=== PATIENT | female | born 1995 | race Caucasian/White ===

== ENCOUNTER → 2017-09-24 | Outpatient (CLI) | payer OTHER ==
[2017-09-25 13:55] LABS: CHLAMYDIA TRACH RNA*** NOT DETECTED (NOT DETECTED); GC (NEIS GONORRHOEAE)RNA** NOT DETECTED (NOT DETECTED)
== END | disposition home or self-care (01) ==
LOC: C.LABSPEC 11:00
PROVIDERS: ATTEND Physician Assistant
DX: Z12.4 Encounter for screening for malignant neoplasm of cervix (principal)

== ENCOUNTER → 2017-10-23 | Outpatient (CLI) | payer OTHER | END | disposition home or self-care (01) | LOC: C.PATHSPEC 13:15 | PROVIDERS: ATTEND Obstetrics & Gynecology | DX: D28.0 Benign neoplasm of vulva (principal) ==

== ENCOUNTER 2023-03-08 19:38 | Inpatient (IN) ==
[2023-03-08] MEDS ORDERED: PROMETHAZINE HCL INJ 25 MG/ML 1 ML VIAL IM STA (22:15)
[2023-03-08] MEDS ORDERED: MoRPHine SULFATE 10 MG/ML CARP/VIAL IM STA (22:15)
[2023-03-08] MEDS ORDERED: MoRPHine SULFATE 4 MG/ML 1 ML CARP\\VIAL IM STA (22:23)
--- NOTE | 2023-03-08 22:25 | History & Physical Report ---
Date of Service March 08, 2023 Assessment & Plan (1) Irregular uterine contractions: (2) Labor, prolonged latent phase: Plan: Patient is a 27-year-old G1, P0 at 40 weeks and 3 days of gestation with irregular contractions, prolonged latent phase, Vital signs stable afebrile, heart rate reassuring, GBS negative, Discussed expectant management versus Pitocin augmentation versus pain management she declines Pitocin and she desires morphine for pain for now and th en decide after, All questions were answered. History of Present Illness Chief Complaint: Contractions Primary Care Provider: Garth Franco MD Patient is a 27-year-old G1, P0 at 40 weeks and 3 days of gestation who has been feeling contractions for last 3 days. She was here on March 06 when her cervix was 1 cm dilated and she was having irregular contractions. I offered her augmentation with Pitocin but she declined and she wanted to go into labor by herself. She was in office yesterday and they have not checked her cervix since she did not feel any change in terms of contraction pattern. She started to have more regular contractions since this morning they have been around every 5 to 6 minutes and then became more regular this evening every 2 to 4 minutes. She came about 2 hours ago and her cervix was 3 cm dilated, 80% effaced and head is -3 station. She is still declines Pitocin or any type of augmentation and she wants to to walk around and going to labor by herself. She has been ambulating for the last 2 hours and her cervix is about the same with minimal change 3.5 cm. She thinks that her pain is manageable not getting any worse or better. We discussed either expectant management versus admission and augmentation with Pitocin versus trial of morphine to give herself a little bit rest and then check her in 2 to 3 hours. After long discussion she decided to have morphine and then take a nap, relax and then see what happens when she wakes up. She still does not want any type of augmentation or induction. Her induction was scheduled to March 15 and she did not want it moved to earlier date in the office. She denies leakage of fluid or vaginal bleeding. She reports good movements. Her has been uncomplicated, she denies any medical problems and she is GBS negative Allergies Allergy/AdvReac Type Severity Reaction Status Date / Time No Known Allergies Allergy Verified 06/15/21 07:52 Home Medications Medication Instructions Recorded Confirmed Type docosahexaenoic acid 200 mg capsule mg PO DAILY 03/06/23 History iron,carbonyl 65 mg-vitamin C 125 1 tab PO DAILY 03/06/23 03/06/23 History mg tablet,delayed release (Vitron-C) vit no.133-ferrous 1 tab PO DAILY 03/06/23 03/06/23 History fumarate 28 mg-folic acid 800 mcg tablet () Patient History Medical History (Updated 03/08/23 @ 22:25 by Luis Burden MD) No known problems Surgical History Status post wisdom tooth extraction Family History Other Colorectal cancer Heart disease Hypertension Denies family history of Ovarian cancer Breast cancer Social History Smoking Status: Never smoker Second Hand Exposure: No; Do You Dip or Chew Tobacco: No; Tobacco Cessation Education Requested by Patient: No Hx Alcohol Use: No Hx Substance Use: No Preferred Language: Puerto [place]ican Communication Ability: Effective Braille Coder Required: No Beliefs That Will Affect Care: None marital status: Current Living Situation: Spouse and Family Current Living Situation Comment: and family current occupational status: employed and student current occupation: casting technician at [employer] Other Information That Helps Us Care for You: No Feels Safe at Home: Yes Safety Concerns: Feels Safe At This Time Diet Comment: regular Dental Care, Regularly: Yes Physical Activity Frequency: Daily Physical Activity Frequency Comment: works outside, Ipsat Therapies Sunscreen Use: Yes Assistive Devices: None Review of Systems as per Subjective / HPI Physical Exam Constitutional: WD/WN, vitals as above well developed, well nourished and + acute distress (She is in mild distress with contractions and comfortable in between) Genitourinary: normal external appearance OB Exam Abdomen: + vertex Manual OB Exam: + cervical dilation 3 cm, + cervical effacement 80% and + station high OB Exam Monitor Tracing: + external uterine monitor used and + category I Results & Data Vital Signs (Past 12 Hours) Vital Signs Temp Pulse Resp BP 03/08/23 20:13 36.7 C 18 03/08/23 19:56 95 H 131/83 Code Status & VTE Plan VTE Prophylaxis Plan VTE Prophylaxis will be ordered: No
--- NOTE | 2023-03-09 01:20 | Obstetrical Progress Note ---
Date of Service March 09, 2023 Subjective Patient slept for about 2 hours without pain She woke up to use the BR and felt one contraction VE; unchanged, 3-4 cm/ 70%/-2, posterior FHR categ I Unable to trace contractions due to her sleeping position Discussed the findings and recommended admission and augmentation She still declines that and wants to sleep until morning and then walk around to see she will go into labor by herself and then decide after Continue to monitor Results & Data Vital Signs (Past 12 Hours) Vital Signs Temp Pulse Resp BP 03/08/23 20:13 36.7 C 18 03/08/23 23:20 84 119/66 03/08/23 22:50 86 98/61 L 03/08/23 19:56 95 H 131/83
[2023-03-09] MEDS: LACTATED RINGER'S 1,000 ML IV PRN ×2 (03:05→05:06)
[2023-03-09] MEDS ORDERED: OXYTOCIN 30 UNITS/500 ML BAG IV PRN ×2 (03:21→10:26)
[2023-03-09] MEDS ORDERED: LIDOCAINE 1% LOCAL 20 ML VIAL INFIL PRN (03:21)
--- NOTE | 2023-03-09 03:23 | Obstetrical Progress Note ---
Date of Service March 09, 2023 Subjective Patient became much more painful and desires epidural. VE; 4/ 80%/-1, central, much lower than before FHR categ I Ctxs q 2-3 min Plan to admit, labs, IVF bolus and then epidural for pain Results & Data Vital Signs (Past 12 Hours) Vital Signs Temp Pulse Resp BP 03/08/23 20:13 36.7 C 18 03/08/23 23:20 84 119/66 03/08/23 22:50 86 98/61 L 03/08/23 19:56 95 H 131/83
[2023-03-09] MEDS ORDERED: BUTORPHANOL TARTRATE 1 MG/ML VIAL IV ONE (03:45)
[2023-03-09] MEDS ORDERED: BUTORPHANOL TARTRATE 1 MG/ML VIAL ONE (03:50)
[2023-03-09 04:19] LABS: Hematocrit (blood only) 36.5 % (37.0-47.0); Hemoglobin 12.7 g/dl (12.0-16.0); Mean Corpuscular Hemoglobin 31.3 pg (25.0-34.0); Mean Corpuscular Hgb Conc 34.8 g/dL (32.0-36.0); Mean Corpuscular Volume 89.9 fL (80.0-100.0); Mean Platelet Volume 9.8 fL (9.4-12.4); Platelet Count 180 K/uL (130-400); RDW Coefficient of Variation 14.1 % (11.5-14.5); RDW Standard Deviation 46.5 fL (36.4-46.3); Red Blood Count 4.06 M/uL (4.20-5.40); White Blood Count 16.98 K/ul (4.8-10.8)
[2023-03-09] MEDS ORDERED: SODIUM CHLORIDE 0.9% PF INJ 10 ML VIAL ONE (04:25)
[2023-03-09] MEDS ORDERED: LIDOCAINE 2%/EPINEPHRINE 1:200,000 20 ML PF ONE (04:25)
[2023-03-09] MEDS ORDERED: BUPIVACAINE 0.25% PF 30 ML VIAL ONE (04:25)
[2023-03-09] MEDS ORDERED: fentaNYL citrate PF 100 MCG/2 ML VIAL ONE (04:25)
[2023-03-09] MEDS ORDERED: fentaNYL 2MCG/ML ROPIVACAINE 1.25MG/ML 100 ML BAG EPI ONE (04:25)
[2023-03-09] MEDS ORDERED: ePHEDrine sulfate 50 MG/ML AMP ONE (04:26)
[2023-03-09 04:34] LABS: Albumin Globulin Ratio 1.3 (0.9-2); Albumin Level 3.6 gm/dl (3.4-5.0); BUN Creatinine Ratio 13.4 (10-20); Bilirubin,Total 0.5 mg/dl (0.2-1.0); Calcium 8.5 mg/dl (8.6-10.3); Creatinine Clr Calc Pharmacy 143.7 ml/min; Est GFR (African American) 141.6 ml/min; Est GFR (Non-African American) 122.2 ml/min; Globulin 2.7 gm/dl (2.5-4.0); Potassium 3.4 mmol/L (3.5-5.1); Total Protein 6.3 gm/dl (6.0-8.3)
--- NOTE | 2023-03-09 04:37 | Anesthesiology Consultation ---
Date of Service March 09, 2023 Assessment & Plan Chart Review Chart Review: Acceptable Risk for Labor Epidural Consults Requested none ASA ASA2 Proposed Anesthesia Anesthesia Type: Labor Epidural Risk / Benefits Reviewed With: PT / POA / Parent / Guardian, Accepts Plan and Informed Consent Obtained History Height/Weight Height: 5 ft 4 in Weight: 95.254 kg Allergies Allergy/AdvReac Type Severity Reaction Status Date / Time No Known Allergies Allergy Verified 06/15/21 07:52 Medications Home Medications Medication Instructions Recorded Confirmed Last Taken docosahexaenoic acid 200 mg capsule mg PO DAILY 03/06/23 03/05/23 20:00 iron,carbonyl 65 mg-vitamin C 125 1 tab PO DAILY 03/06/23 03/06/23 03/05/23 11:00 mg tablet,delayed release (Vitron-C) vit no.133-ferrous 1 tab PO DAILY 03/06/23 03/06/23 03/05/23 20:00 fumarate 28 mg-folic acid 800 mcg tablet () Active Medications Generic Name Dose Route Start Last Admin Trade Name Albertq PRN Reason Stop Dose Admin Lactated Ringer's 1,000 mls @ 150 mls/hr 03/09/23 03:21 03/09/23 05:06 Lr IV 03/11/23 03:20 150 mls/hr .[id number] PRN Infusion L&D Protocol Protocol NPO Date Last Intake of Fluids: 03/09/23 Time Last Intake of Fluids: 04:00 Date Last Intake of Solids: 03/08/23 Time Last Intake of Solids: 19:00 Past Medical History Medical History No known problems Exercise / Class Metabolic Activity II 4-5 Yardwork/Stairs/Walk up hill Past Family History Family History Other Colorectal cancer Heart disease Hypertension Denies family history of Ovarian cancer Breast cancer Past Surgical History Surgical History Status post wisdom tooth extraction Past Anesthesia History No Hx of Anesthesia Complications and No Family Hx of Anesthesia Complications History of PONV No Hx of PONV and No Hx of Motion Sickness Social History Smoking Status: Never smoker Do You Dip or Chew Tobacco: No Hx Alcohol Use: No Hx Substance Use: No substance use type: does not use Physical Exam Vital Signs Last Vital Signs Temp 36.7 C 03/09/23 04:00 Pulse 93 H 03/09/23 05:17 Resp 18 03/09/23 04:00 BP 94/55 L 03/09/23 05:05 Pulse Ox 98 03/09/23 05:17 ENMT Mouth: no TMJ abnormality Thyromental Distance: > or= 3.5 Finger Breadths Mallampati Class: II Neck normal visual inspection and trachea midline; neck extension not limited Respiratory normal respiratory effort Auscultation: lungs clear to auscultation bilaterally Cardiovascular Rate/Rhythm: regular rate and regular rhythm Heart Sounds: no murmur Musculoskeletal Spine: normal cervical ROM Extremities: full ROM of extremities Neurologic moves all extremities Psychiatric Orientation: alert and oriented x 3 Testing Laboratory Results 03/09/23 03:48 03/09/23 03:48
[2023-03-09] MEDS ORDERED: fentaNYL 2MCG/ML ROPIVACAINE 1.25MG/ML 100 ML BAG EPI PRN (05:17)
[2023-03-09] MEDS ORDERED: LIDOCAINE 2% MPF LOCAL 5 ML VIAL EPI PRN (05:17)
[2023-03-09] MEDS ORDERED: ONDANSETRON INJ 2 MG/ML 2 ML VIAL IV PRN (05:17)
[2023-03-09] MEDS ORDERED: ePHEDrine sulfate 50 MG/ML AMP IV PRN (05:17)
[2023-03-09] MEDS ORDERED: fentaNYL citrate PF 100 MCG/2 ML VIAL EPI PRN (05:17)
[2023-03-09] MEDS ORDERED: BUPIVACAINE 0.25% PF 30 ML VIAL EPI PRN (05:17)
[2023-03-09] MEDS ORDERED: LIDOCAINE 2%/EPINEPHRINE 1:200,000 20 ML PF EPI STA (05:17)
[2023-03-09] MEDS ORDERED: ROPIVACAINE 0.5% PF 5 MG/ML 20 ML VIAL EPI PRN (05:17)
[2023-03-09] MEDS ORDERED: SODIUM CHLORIDE 0.9% PF INJ 10 ML VIAL EPI STA (05:17)
[2023-03-09] MEDS ORDERED: METOCLOPRAMIDE HCL 20 MG in SODIUM CHLORIDE 0.9% 50 ML IV PRN (05:17)
[2023-03-09] MEDS ORDERED: NALOXONE HCL 0.4 MG/1 ML VIAL/CARP IV PRN (05:17)
[2023-03-09] MEDS ORDERED: diphenhydrAMINE 50 MG/ML VIAL IV PRN (05:17)
[2023-03-09] MEDS ORDERED: BUPIVACAINE 0.25% PF 30 ML VIAL EPI STA (05:17)
[2023-03-09] MEDS ORDERED: fentaNYL citrate PF 100 MCG/2 ML VIAL EPI STA (05:17)
[2023-03-09] MEDS ORDERED: SODIUM CHLORIDE 0.9% PF INJ 10 ML VIAL EPI PRN (05:17)
[2023-03-09] MEDS ORDERED: NALBUPHINE HCL INJ 10 MG/ML AMP IV PRN (05:17)
[2023-03-09] MEDS ORDERED: NALOXONE HCL 1 MG in SODIUM CHLORIDE 0.9% 1000ML 1,000 ML IV PRN (05:17)
[2023-03-09] MEDS ORDERED: bisacodyL 10 MG SUPP PR PRN (10:26)
[2023-03-09] MEDS ORDERED: ACETAMINOPHEN 325 MG TAB PO PRN (10:26)
[2023-03-09] MEDS ORDERED: DIPHTHERIA/TETANUS/PERTUSSIS 0.5mL SYR/VIAL (Age 7+yrs) IM ONE (10:26)
[2023-03-09] MEDS ORDERED: BENZOCAINE 20% AER SPR 82.5 GM CAN EXT PRN (10:26)
[2023-03-09] MEDS ORDERED: HYDROCORTISONE ACETATE 25 MG SUPP PR PRN (10:26)
--- NOTE | 2023-03-09 10:30 | Delivery Summary ---
Vaginal Delivery Summary Date of Service March 09, 2023 Vaginal Delivery Summary delivery note Delivery Summary: Patient was placed in the dorsal lithotomy position. She was prepped and draped in the usual sterile fashion. Upon maternal pushing the head was delivered atraumatically followed by the anterior shoulders, posterior shoulders then the remainder of the infants body with FOB hands over hands. Nuchalx1 and body cordx1 reduced. The infant was immediately placed on mother's abdomen, dried and stimulated. Scant moderate mec noted. Delayed cord clamping for 60 seconds was performed. The infants mouth and nose were bulb suctioned by nursing staff. A male infant was delivered at 1005, weight pending with APGARS of 8 at 1 minute and 9 at 5 minutes. The was handed off to the awaiting nursing staff. Cord blood gases were not obtained. The placenta delivered intact with three vessel cord at 1009. Placenta was sent to pathology (meconium stained, unknown ROM, ?prolonged). Thirty units of Pitocin were added to the IV fluid and allowed to run freely. Uterine massage was performed until uterus was deemed firm. Upon inspection of the perineum, cervix was intact. Left vaginal sidewall laceration and right sidewall to labial laceration was noted which was repaired with 3-0 vicryl in the usual fashion. Upon re-inspection the patient was hemostatic. Uterus again massaged and found to be firm. Needle and sponge counts were correct. Patient was stable and allowed to recover in L&D room. was stable and remained in room with mother in the labor and delivery unit. EBL 300mls
--- NOTE | 2023-03-09 12:11 | Anesthesia Procedure Note ---
Date of Service March 09, 2023 Anesthesia Post Epidural Note Vital Signs Vital Signs: Temp Pulse Resp BP Pulse Ox 36.7 C 130 H 20 112/63 98 03/09/23 09:01 03/09/23 12:09 03/09/23 10:00 03/09/23 12:09 03/09/23 10:07 Notes Mental Status: alert / awake / arousable Nausea / Vomiting: adequately controlled Pain: adequately controlled Airway Patency, RR, SpO2: stable & adequate BP & HR: stable & adequate Hydration State: stable & adequate Neuraxial Anesthesia: was administered and sensory block is resolving Anesthetic Complications: no major complications apparent Epidural: Removed without complications and With tip intact
[2023-03-09] MEDS: IBUPROFEN 600 MG TAB PO PRN ×2 (14:01→19:09)
[2023-03-09] MEDS: DOCUSATE SODIUM 100 MG CAP PO SCH (20:56)
[2023-03-10] MEDS: IBUPROFEN 600 MG TAB PO PRN ×4 (03:43→19:27)
[2023-03-10 06:14] LABS: Hematocrit (blood only) 31.4 % (37.0-47.0); Hemoglobin 10.7 g/dl (12.0-16.0); Mean Corpuscular Hgb Conc 34.1 g/dL (32.0-36.0); Mean Platelet Volume 9.7 fL (9.4-12.4); Platelet Count 170 K/uL (130-400); RDW Coefficient of Variation 14.5 % (11.5-14.5); RDW Standard Deviation 47.9 fL (36.4-46.3); Red Blood Count 3.45 M/uL (4.20-5.40); White Blood Count 17.18 K/ul (4.8-10.8)
[2023-03-10] MEDS: DOCUSATE SODIUM 100 MG CAP PO SCH ×2 (08:03→19:28)
[2023-03-10] MEDS: PRENATAL VITAMIN 1 TAB PO SCH (08:03)
[2023-03-10] MEDS: FERROUS SULFATE 325 MG TAB PO SCH (08:04)
--- NOTE | 2023-03-10 08:22 | Obstetrical Progress Note ---
Date of Service March 10, 2023 Assessment & Plan (1) Normal course: Continue routine care Anticipate discharge home tomorrow Subjective Ambulation: ambulating normally Voiding: no voiding problems Passing Gas:: Yes Diet Tolerance:: regular diet Lochia:: Moderate Feeding Type:: breast feeding Current Pain Level(1-10): 0 Doing well, no complaints at this time. Bonding well with baby Physical Exam Constitutional WD/WN, vitals as above Respiratory normal respiratory effort, lungs clear to auscultation Cardiovascular RRR, no murmur, no edema Gastrointestinal (Abdomen) normal bowel sounds, soft, nontender, no hepatosplenomegaly Results & Data Vital Signs (Past 12 Hours) Vital Signs Temp Pulse Resp BP Pulse Ox O2 Del Method 03/10/23 03:36 36.8 C 90 18 109/63 98 Room Air 03/09/23 22:51 36.9 C 88 18 111/67 97 Room Air Laboratory Results Laboratory Results WBC 17.18 K/ul (4.8-10.8) H 03/10/23 05:37 RBC 3.45 M/uL (4.20-5.40) L 03/10/23 05:37 Hgb 10.7 g/dl (12.0-16.0) L 03/10/23 05:37 Hct 31.4 % (37.0-47.0) L 03/10/23 05:37 MCV 91.0 fL (80.0-100.0) 03/10/23 05:37 MCH 31.0 pg (25.0-34.0) 03/10/23 05:37 MCHC 34.1 g/dL (32.0-36.0) 03/10/23 05:37 RDW Std Deviation 47.9 fL (36.4-46.3) H 03/10/23 05:37 RDW Coeff of Declan 14.5 % (11.5-14.5) 03/10/23 05:37 Plt Count 170 K/uL (130-400) 03/10/23 05:37 MPV 9.7 fL (9.4-12.4) 03/10/23 05:37 Sodium 133 mmol/L (136-145) L 03/09/23 03:48 Potassium 3.4 mmol/L (3.5-5.1) L 03/09/23 03:48 Chloride 106 mmol/L (98-107) 03/09/23 03:48 Carbon Dioxide 21 mmol/L (21-32) 03/09/23 03:48 Anion Gap 6 (3-11) 03/09/23 03:48 BUN 9 mg/dl (6-23) 03/09/23 03:48 Creatinine 0.67 mg/dl (0.6-1.2) 03/09/23 03:48 Est Cr Clr Drug Dosing 143.7 ml/min 03/09/23 03:48 Est GFR ( Amer) 141.6 ml/min 03/09/23 03:48 Est GFR (Non-Af Amer) 122.2 ml/min 03/09/23 03:48 BUN/Creatinine Ratio 13.4 (10-20) 03/09/23 03:48 Glucose 101 mg/dl (70-99(Fasting)) H 03/09/23 03:48 Calcium 8.5 mg/dl (8.6-10.3) L 03/09/23 03:48 Total Bilirubin 0.5 mg/dl (0.2-1.0) 03/09/23 03:48 AST 16 U/L (13-39) 03/09/23 03:48 ALT 14 U/L (7-52) 03/09/23 03:48 Alkaline Phosphatase 101 U/L (34-104) 03/09/23 03:48 Total Protein 6.3 gm/dl (6.0-8.3) 03/09/23 03:48 Albumin 3.6 gm/dl (3.4-5.0) 03/09/23 03:48 Globulin 2.7 gm/dl (2.5-4.0) 03/09/23 03:48 Albumin/Globulin Ratio 1.3 (0.9-2) 03/09/23 03:48 SARS-CoV-2, RNA, NAAT NEGATIVE (NEGATIVE) 03/09/23 Unknown
[2023-03-10] MEDS ORDERED: bisacodyL 5 MG TABEC PO SCH (20:00)
[2023-03-11] MEDS: IBUPROFEN 600 MG TAB PO PRN ×2 (03:45→08:24)
[2023-03-11 06:55] LABS: Hematocrit (blood only) 31.6 % (37.0-47.0)
[2023-03-11] MEDS: FERROUS SULFATE 325 MG TAB PO SCH (08:23)
[2023-03-11] MEDS: PRENATAL VITAMIN 1 TAB PO SCH (08:24)
[2023-03-11] MEDS: DOCUSATE SODIUM 100 MG CAP PO SCH (08:24)
--- NOTE | 2023-03-11 11:07 | Obstetrical Progress Note ---
Date of Service March 11, 2023 Subjective Ambulation: ambulating normally Voiding: no voiding problems Passing Gas:: Yes Diet Tolerance:: regular diet Lochia:: Small Feeding Type:: breast feeding Current Pain Level(1-10): 0 doing well Physical Exam Constitutional WD/WN, vitals as above Musculoskeletal Extremities: extremities normal to inspection Neurologic patellar DTR's 2+ bilat, sensation intact Psychiatric A+Ox3, euthymic affect Results & Data Vital Signs (Past 12 Hours) Vital Signs Temp Pulse Resp BP Pulse Ox O2 Del Method 03/11/23 07:15 36.8 C 85 18 127/56 L 98 Room Air Laboratory Results Laboratory Results - last 72 hr 03/09/23 03/09/23 03/09/23 03:48 03:48 Unknown WBC 16.98 H RBC 4.06 L Hgb 12.7 Hct 36.5 L MCV 89.9 MCH 31.3 MCHC 34.8 RDW Std Deviation 46.5 H RDW Coeff of Declan 14.1 Plt Count 180 MPV 9.8 Sodium 133 L Potassium 3.4 L Chloride 106 Carbon Dioxide 21 Anion Gap 6 BUN 9 Creatinine 0.67 Est Cr Clr Drug Dosing 143.7 Est GFR ( Amer) 141.6 Est GFR (Non-Af Amer) 122.2 BUN/Creatinine Ratio 13.4 Glucose 101 H Calcium 8.5 L Total Bilirubin 0.5 AST 16 ALT 14 Alkaline Phosphatase 101 Total Protein 6.3 Albumin 3.6 Globulin 2.7 Albumin/Globulin Ratio 1.3 SARS-CoV-2, RNA, NAAT NEGATIVE Blood Type Antibody Screen Screen 03/10/23 03/10/23 03/11/23 05:37 05:37 05:53 WBC 17.18 H RBC 3.45 L Hgb 10.7 L 11.0 L Hct 31.4 L 31.6 L MCV 91.0 MCH 31.0 MCHC 34.1 RDW Std Deviation 47.9 H RDW Coeff of Declan 14.5 Plt Count 170 MPV 9.7 Sodium Potassium Chloride Carbon Dioxide Anion Gap BUN Creatinine Est Cr Clr Drug Dosing Est GFR ( Amer) Est GFR (Non-Af Amer) BUN/Creatinine Ratio Glucose Calcium Total Bilirubin AST ALT Alkaline Phosphatase Total Protein Albumin Globulin Albumin/Globulin Ratio SARS-CoV-2, RNA, NAAT Blood Type O Negative Antibody Screen NEGATIVE Screen Negative
== END 2023-03-11 12:35 | disposition home or self-care (01) | DRG 807 ==
LOC: OPB 19:38 → 4S1 19:42 → 4E1 03-09 15:38